=== PATIENT | female | born 1955 | race African-American/Black ===

== ENCOUNTER → 2016-09-25 | Outpatient (CLI) | payer OTHER ==
[2016-02-07 11:15] VITALS: BP 159/81
[~2016-09-25] MED LIST: DULO20CA PO; LOSA25TA4 PO
--- NOTE | 2016-09-25 14:28 | RAD ---
CT of the chest without contrast, 09/25/2016: History: Lung mass Noncontrast scans were obtained as requested and compared to an exam from 01/24/2016. There is a persistent left upper lobe opacity is predominantly groundglass in nature with a smaller irregular solid component centrally. This overall process measures 4.9 x 3.4 cm as best seen on axial image 88 of series #5. The more solid central component measures approximately 15 mm in greatest diameter. This lesion appears unchanged since 01/24/2016. No new pulmonary infiltrate or mass is seen. There is no evidence of pleural fluid. There is mild calcific plaquing of the thoracic aorta without evidence of aneurysm. Minimal coronary artery calcifications are noted. No mediastinal adenopathy is seen. There is an unchanged small subcentimeter subcapsular low density lesion in the anterior aspect of the liver, probably representing a cyst. IMPRESSION: 1. Unchanged part solid left upper lobe lesion as described above. This may represent an area of scarring or chronic inflammation. Low-grade adenocarcinoma cannot be excluded. Correlation with the previous biopsy results is suggested. Extended CT follow-up may be necessary in this patient. 2. No new chest abnormality is detected. PQRS Compliance Statement: One or more of the following individualized dose reduction techniques were utilized for this examination: 1. Automated exposure control 2. Adjustment of the mA and/or kV according to patient size 3. Use of iterative reconstruction technique
== END | disposition home or self-care (01) ==
LOC: CT 13:07
PROVIDERS: ATTEND Internal Medicine Critical Care Medicine
DX: R91.8 Other nonspecific abnormal finding of lung field (principal)
CPT/HCPCS: 71250

== ENCOUNTER → 2017-08-13 | Outpatient (CLI) | payer OTHER | END | disposition home or self-care (01) | LOC: CT 09:19 | DX: I25.10 Atherosclerotic heart disease of native coronary artery without angina pectoris (principal); R91.1 Solitary pulmonary nodule | CPT/HCPCS: 71250 ==